=== PATIENT | male | born 1965 | race Caucasian/White ===

== ENCOUNTER 2024-02-13 05:10 | Inpatient (IN) | payer SELFPAY ==
[2024-02-13] VITALS (24 sets, daily range): BP systolic 103–161; BP diastolic 68–116; PULSE 72–133; RESP 12–41; TEMP 36.1–36.8; O2SAT 66–99; BMI 17.2; BMI 16.5
--- NOTE | 2024-02-13 05:26 | RAD_ITS ---
EXAM: XR CHEST, 1 VIEW CLINICAL INDICATION: sob TECHNIQUE: Frontal view of the chest. COMPARISON: No relevant prior studies available. FINDINGS: LUNGS AND PLEURAL SPACES: Emphysema. No pneumothorax. No effusion. HEART: Unremarkable. Cardiac silhouette not enlarged. MEDIASTINUM: Central airways and mediastinal contour are unremarkable. BONES/JOINTS: Unremarkable. No acute fracture. SOFT TISSUES: Unremarkable. RAD/Chest 1 View (Portable) IMPRESSION: Emphysema. No definite pneumonia. Electronically Signed: Colten Blackwood MD at 6:53 EDT ,
--- NOTE | 2024-02-13 05:27 | EKG12_ITS ---
Test Reason : SHORTNESS OF BREATH Blood Pressure : / mmHG Vent. Rate : 121 BPM Atrial Rate : 121 BPM P-R Int : 126 ms QRS Dur : 098 ms QT Int : 330 ms P-R-T Axes : 080 017 122 degrees QTc Int : 468 ms Sinus tachycardia with occasional Premature ventricular complexes Septal infarct , age undetermined T wave abnormality, consider lateral ischemia Abnormal ECG Confirmed by KARMA VICENTE, MUNA ([id number]), assistant editor LUIS LINK ([id number]) on 02/16/2024 11:13:44 AM Referred By: GERALD Confirmed By:MUNA PARADA MD
--- NOTE | 2024-02-13 05:28 | ED.VIS.DYS ---
HPI History of Present Illness Chief Complaint: Shortness of Breath Informant: patient and EMS Narrative Narrative: 58-year-old male presents via EMS in respiratory distress for dyspnea and diffuse chest heaviness that has been going on for over a month. He states for the most part it has been almost as bad as this but this is the worst it has been. He states he has avoided coming to the hospital because he does not have insurance. He does not see a doctor at all, and has not for a long time and lives alone. States he was a smoker for 40 years, states he may have COPD but has never been formally diagnosed with it. He was given a duo nebulizer treatment by EMS on the way here and he states it has maybe helped a little but he is diaphoretic and staff asked me to stop seeing another patient and to care for this 1 immediately. Denies orthopnea or leg edema. Denies fevers that he knows of. He has had a cough, not very productive. No hemoptysis. Bedbugs noted on patient upon arrival by staff. [facility] Medical History HTN (hypertension) Home Medications ?Medication ?Instructions ?Recorded ?Last Taken ?Type NK 02/13/24 Unknown History Allergy/AdvReac Type Severity Reaction Status Date / Time No Known Allergies Allergy Verified 02/13/24 05:12 Surgical History no surgical history Social History Smoking Status: Heavy Smoker (>10/day) ROS [facility] ED Constitutional Constitutional ED: Reports malaise and sweats; Denies chills or fever(s) Eyes Eyes: Denies change in vision or diplopia ENT ENT ED: Denies rhinorrhea or sore throat Cardiovascular Cardiovascular: Reports chest pain; Denies orthopnea or palpitations Respiratory/Chest Respiratory/Chest: Reports chest tightness, cough and dyspnea; Denies orthopnea Gastrointestinal Gastrointestinal: Denies abdominal pain, diarrhea, nausea or vomiting Genitourinary Genitourinary ED: Denies dysuria or hematuria Musculoskeletal Musculoskeletal: Denies back pain or neck pain Integumentary Denies abscess or rash Neurologic Neurologic: Denies headache(s), paresthesias or weakness Psychiatric Psychiatric: Reports anxiety; Denies suicidal thoughts EXAM Physical Exam Const Vital Signs: 02/13/24 05:11 02/13/24 05:19 02/13/24 05:21 Temperature 98.2 F 98.2 F Temperature Source Oral Oral Pulse Rate 131 H 132 H Respiratory Rate 41 H 26 H Respiratory Effort Labored Accessory Muscle Use Respiratory Pattern Tachypnea Blood Pressure 161/116 H 161/116 H Blood Pressure Mean 131 131 Pulse Ox 97 97 Oxygen Delivery Method Venturi Mask Venturi Mask Fraction of Inspired Oxygen (FIO2) 40 40 02/13/24 05:36 02/13/24 05:41 02/13/24 05:45 Temperature Temperature Source Pulse Rate 127 H 120 H 133 H Respiratory Rate 34 H 19 H 24 H Respiratory Effort Respiratory Pattern Irregular Blood Pressure 127/111 H Blood Pressure Mean 117 Pulse Ox 98 97 Oxygen Delivery Method Fraction of Inspired Oxygen (FIO2) 35 02/13/24 05:48 02/13/24 05:50 02/13/24 06:00 Temperature Temperature Source Pulse Rate 123 H 117 H Respiratory Rate 24 H 21 H Respiratory Effort Respiratory Pattern Tachypnea Blood Pressure 133/104 H Blood Pressure Mean 113 Pulse Ox 99 Oxygen Delivery Method Bi-pap Fraction of Inspired Oxygen (FIO2) 35 02/13/24 06:15 02/13/24 06:19 02/13/24 06:35 Temperature 97.8 F Temperature Source Temporal Pulse Rate 111 H 108 H 108 H Respiratory Rate 22 H 20 H 24 H Respiratory Effort Respiratory Pattern Tachypnea Blood Pressure 129/90 H 127/95 H Blood Pressure Mean 101 105 Pulse Ox 99 98 Oxygen Delivery Method Bi-pap Fraction of Inspired Oxygen (FIO2) 02/13/24 06:44 02/13/24 07:00 02/13/24 07:00 Temperature 97.9 F Temperature Source Temporal Pulse Rate 107 H 102 H Respiratory Rate 22 H 18 Respiratory Effort Respiratory Pattern Tachypnea Blood Pressure 115/93 H 115/93 H Blood Pressure Mean 100 100 Pulse Ox 98 Oxygen Delivery Method Bi-pap Fraction of Inspired Oxygen (FIO2) Positive well nourished, well developed and unkempt Constitutional Narrative: Diaphoretic, in mild respiratory distress, but keenly alert and able to converse in 3-5 word sentences General Appearance ED: unkempt and well developed HEENT Reports moist mucous membranes normocephalic and atraumatic Eyes PERRL and EOMs intact bilaterally Neck full ROM, supple and no JVD Resp Resp Narrative: Mild respiratory distress. Diminished lung sounds throughout but symmetrically. Trachea midline. Auscultation: wheezes expiratory wheezes and throughout Cardio regular rate, regular rhythm and no murmurs GI non-tender and non-distended Auscultation: normoactive bowel sounds Palpation: soft Back/Spine no CVA tenderness General Back: other FROM Extremity normal to inspection General Extremety ED: Negative for edema, pulses abnormal or tenderness General Extremity: Negative for edema or pulses abnormal Neuro oriented x3, CN's II-XII intact bilaterally and no sensory deficits noted Sensorium / Orientation: awake and alert Motor Exam: strength 5/5 throughout Psych mental status grossly normal Appearance: unkempt Skin no rashes or lesions noted and no wounds MDM MDM MDM Narrative Medical decision making narrative: Hypoxic for EMS in the 60s on room air. Prehospital EKG shows tachycardia, artifact, no acute injury pattern similar to our EKG here. He is 97% on a 40% Venturi mask. Still in mild respiratory distress so respiratory putting him on BiPAP while providing more albuterol treatments, he has a thick travis we will see if he tolerates it and/or it makes a seal and helps. pt was able to tolerate bipap, which in addition to breathing treatments, helped some. ABG shows hypercapnia w/ acidosis, indicating acute resp failure. 1-view portable CXR on my interpretation shows hyperexpansion and no acute pneumonia. EKG shows no acute injury pattern, his lactate is a little elevated, and he has a mild leukocytosis. RSV/covid/flu is negative. Giving him steroids given that he probably has COPD and discussing w/ hospitalist for admission; since improving, I think non-ICU is ok. Lab Data Attestation: I reviewed the patient's lab results. Labs: Laboratory Results - last 24 hr 02/13/24 02/13/24 02/13/24 05:27 05:55 06:20 WBC 12.2 H RBC 4.69 Hgb 16.1 Hct 49.6 MCV 105.8 H MCH 34.3 H MCHC 32.5 RDW Std Deviation 54.4 H RDW Coeff of Frantz 13.7 Plt Count 169 MPV 11.3 Neut % (Auto) Not Reportable Absolute Neuts (auto) 4.4 Absolute Lymphs (auto) 6.22 H Total Counted 100 Neutrophils % (Manual) 35 L Band Neutrophils % 1 Lymphocytes % (Manual) 51 H Monocytes % (Manual) 5 Eosinophils % (Manual) 7 H Basophils % (Manual) 1 Nucleated RBCs/100 WBC 2 Diff Path Review May foll Platelet Estimate ADEQUATE RBC Morphology NORM C+C Sodium Cancelled Cancelled 139 Potassium Cancelled Cancelled 4.7 Chloride Cancelled Cancelled 101 Carbon Dioxide Cancelled Cancelled 33.0 H Anion Gap Cancelled Cancelled 5 BUN Cancelled Cancelled 9 Creatinine Cancelled Cancelled 1.01 Estim Creat Clear Calc Cancelled Cancelled 61.98 Est GFR (MDRD) Af Amer Cancelled Cancelled 98 Est GFR (MDRD) Non-Af Cancelled Cancelled 81 BUN/Creatinine Ratio Cancelled Cancelled 8.9 L Glucose Cancelled Cancelled 207 H Lactic Acid 2.8 H* Calcium Cancelled Cancelled 8.6 Troponin I High Sens Cancelled Cancelled 44 ABG Data ABG results: ABG 02/13/24 06:20 Specimen Type ART Sample Site R Radial pH 7.26 L Bicarbonate Actual 33.2 H Total CO2 36 Base Excess 6 H O2 Saturation 98 O2 % 35.0 ABG pCO2 74.0 H* ABG pO2 123 H Pasquale Test Positive O2 Delivery Device BiPAP Vent Mode Not entered POC PEEP 8 Peak Inspir Pressure 14 Crit Call To/Read Back Yes Blood Gas Notified Whom bb Blood Gas Notified Time 06:22:09 Radiography Diagnostic Testing: Clinical Impression(s) from Imaging Studies Chest X-Ray 02/13/24 05:26 IMPRESSION: Emphysema. No definite pneumonia. Electronically Signed: Colten Blackwood MD at 6:53 EDT , Rhythm Strip Rhythm Strip: Sinus Tach Rate: 130 Ectopy: None EKG Initial EKG: Attestation: I personally reviewed and interpreted this EKG as follows: Interpretation: No Acute Injury Pattern and Sinus Tachycardia Management Discussion w/another healthcare provider: Hospitalist Discharge Plan Triage Chief Complaint: Shortness of Breath ED Provider: Chema Almanza Dx/Rx/DC Orders Clinical Impression: Acute respiratory failure with hypoxia and hypercapnia Prescriptions: No Action NK Primary Care Provider: Care Physician,No Primary Referrals: NOT,DEFINED [Non-Staff] - Print Language: [place]an Disposition Disposition: Acute Care Hospital [facility]
[2024-02-13 05:39] LABS: Hematocrit 49.6 % (40-54); Hemoglobin 16.1 g/dL (13.0-16.5); Mean Corp Hgb Conc 32.5 g/dL (32-36); Mean Corpuscular Hgb 34.3 pg (27.0-32.0); Mean Corpuscular Volume 105.8 fL (80-94); Mean Platelet Vol. 11.3 fl (6.2-12.0); POSITIVE DIFFERENTIAL YES; POSITIVE MORPHOLOGY YES; Platelet Count 169 K/mm3 (150-450); RBC Distribution Width CV 13.7 % (11.6-14.6); RBC Distribution Width SD 54.4 fl (35.1-43.9); Red Blood Count 4.69 M/mm3 (4.6-6.2); White Blood Count 12.2 K/mm3 (4.4-11.0)
[2024-02-13] MEDS: 0.9% Normal Saline (1000mL) 1,000 ML 150 ML IV (05:47)
[2024-02-13] MEDS: Albuterol 2.5 MG/3 ML VIAL.NEB. INHALATION ×3 (05:48→06:33)
[2024-02-13 06:06] LABS: Lactic Acid 2.8 mmol/L (0.4-1.9)
[2024-02-13 06:25] LABS: Allen Test Positive; Base Excess 6 mmol/L (-2 to +2); Bicarbonate 33.2 mmol/L (22-26); Blood Gas Specimen Type ART; Mode Not entered; O2 Delivery Device BiPAP; PEEP 8; PIP 14; PO2 123 mmHG (75-100); SITE R Radial; SO2 98 % (95-99); Total Carbon Dioxide 36 mmol/L; pH 7.26 (7.35-7.45)
--- NOTE | 2024-02-13 06:31 | ED.RN ---
EMS reported bed bugs in the home. Pt unable to tolerate decontamination room due to severe shortness of breath and need for bipap. RNs Nat and Regla performed bedside decontamination by washing with wipes and changing all linens. Nursing reported to this dietetic tech no bed bugs noted during care.
[2024-02-13 06:35] LABS: Differential Indicated MANUAL DIFF
[2024-02-13 06:41] LABS: Basophil 1 % (0-1); Eosinophil 7 % (0-5); Lymphocyte 51 % (19-41); Monocyte 5 % (0-10); Neutrophil-Band 1 % (0-5); Neutrophil-Segmented 35 % (47-70); Nucleated Red Bld Cells,Manual 2 % (0-5); Total Cells Counted 100 (MANUAL DIFF)
[2024-02-13 06:43] LABS: Anion Gap 5 (5-15); BUN 9 mg/dL (7-18); BUN/Creat Ratio 8.9 RATIO (10-20); Calcium,Total 8.6 mg/dL (8.5-10.1); Chloride 101 mmol/L (98-107); Creatinine, Serum 1.01 mg/dL (0.70-1.30); EST Glomerular Filtration Rate 81 mL/min (>60); Est Glom Filt Rate - Afr Amer 98 mL/min (>60); Estimated Creatinine Clearance 61.98 ml/min; Glucose 207 mg/dL (74-106); Potassium 4.7 mmol/L (3.5-5.1); Sodium Level 139 mmol/L (136-145); Troponin-I HS 44 pg/mL (3.0-78.0)
[2024-02-13 06:43] LABS: Platelet Estimate ADEQUATE (ADEQ); Red Cell Morphology NORM C+C NORMAL (NORM C&C)
[2024-02-13 06:44] LABS: Absolute Lymphocyte Count 6.22 X10^3/uL (0.83-4.51); Absolute Neutrophil Count 4.4 X10^3/uL (2.0-7.7)
--- NOTE | 2024-02-13 07:29 | NURSING ---
DR BARTLETT FOR DR DUARTE
[2024-02-13] MEDS: MethylPREDNISolone 125 MG/2 ML Vial IV (07:36)
--- NOTE | 2024-02-13 07:39 | NURSING ---
PCU D[facility]UV ACUTE RESP FAILURE
[2024-02-13 08:31] LABS: Hemoglobin A1c 5.3 % (3.8-5.6)
--- NOTE | 2024-02-13 09:27 | PCM.HP.STD ---
Documented by User: Zahira Gonzalez RN 02/13/24 11:33 HPI - General General Date of Admission: 02/13/24 Date of Service: 02/13/24 Chief Complaint: Shortness of breath HPI Narrative DEEPALI SUTHERLAND, is a 58 M who presented to the ER via EMS for shortness of breath. Pt seen at bedside in the ED, awake, alert, & cooperative. Pt reports intermittent exertional shortness of breath & prod cough w/white & clear sputum x 1 month. Sx worsened last evening & pt just became tired of it. He thinks he may have COPD, but has not been officially diagnosed. 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 Has not worked for past 3 days d/t not feeling well. Reports heat & humidity also worsen symptoms. Pt is a one ppd smoker x 40 yrs reporting he is trying to quit. Upon EMS arrival, sats in the 60s increasing to 97% on 40% venti-mask. Pt placed on Bipap in the ED. Tachycardic in the 130s upon arrival, decreasing to 98 in ED. ED workup revealed respiratory acidosis w/pH 7.26, CO2 74, & O2 123 on bipap. Pt also has slightly elevated WBC @ 12.2 w/no shift, elevated glucose @ 207, lactic acid. Troponin negative. COVID, Flu A/B, & RSV negative. CXR showed hyperinflation, no infiltrates noted. He received albuterol x 3, methylprednisolone 125 mg x 1, & NS @ 150 ml/hr w/improvement of sx. Denies dizziness, syncope, chest pain, N/V. Pt reports hx of HTN. No home medications. He is unable to recall last time he was seen by physician. [facility] Medical History (Updated 02/13/24 @ 11:07 by Zahira Gonzalez RN) Pneumothorax HTN (hypertension) Home Medications ?Medication ?Instructions ?Recorded ?Last Taken ?Type NK 02/13/24 Unknown History Allergy/AdvReac Type Severity Reaction Status Date / Time No Known Allergies Allergy Verified 02/13/24 05:12 Family History (Updated 02/13/24 @ 10:04 by Zahira Gonzalez RN) Mother Hypertension Father , Unknown Hx No problems noted. Brother , @ 67 yo from cirrhosis Diabetes Cirrhosis of liver Brother Myocardial infarction Brother No problems noted. Sister No problems noted. Surgical History (Updated 02/13/24 @ 10:07 by Zahira Gonzalez RN) S/P thoracostomy tube placement Surgical History no surgical history Social History (Updated 02/13/24 @ 10:09 by Zahira Gonzalez RN) financial difficulty paying for basics: somewhat hard current occupational status: employed current occupation: Works in kitchen at local restaurant history of recent travel: No current gender identity: male Smoking Status: Heavy Smoker (>10/day) Tobacco: How many years used: 40 quit status: considering quitting alcohol intake: current details: 2-6 beers 4 times/wk substance use type: marijuana and other details: Marijuana every 2 wks what type of physical activity do you participate in: none do you feel safe at home: Yes ROS Constitutional Constitutional: Reports fatigue; Denies anorexia, change in weight, chills, fever(s), malaise, night sweats or weakness Eyes Eyes: Denies blurry vision, change in vision, discharge from eye(s), double vision, erythema or eye pain ENT HEENT: Denies dysphagia, ear pain, epistaxis, headache(s), nasal congestion, nasal discharge or sore throat Cardiovascular Cardiovascular: Reports dyspnea on exertion; Denies chest pain, edema, lightheadedness, orthopnea, palpitations, rapid heart rate or syncope Respiratory/Chest Respiratory/Chest: Reports cough, dyspnea, productive cough, shortness of breath with exertion, wheezing and other Details: Intermittent prod cough w/white & clear sputum. Intermittent wheezing. ; Denies excessive phlegm production, hemoptysis or shortness of breath at rest Gastrointestinal Gastrointestinal: Denies abdominal pain, constipation, diarrhea, dyspepsia, hematemesis, melena, nausea or vomiting Genitourinary Genitourinary: Denies burning urination, difficulty urinating, dysuria, hematuria, nocturia or urinary frequency Musculoskeletal Musculoskeletal: Denies arthralgias, back pain, joint pain, myalgias or neck pain Neurologic Neurologic: Denies abnormal gait, abnormal speech, confusion, dizziness, headache(s) or numbness Psychiatric Psychiatric: Reports anxiety; Denies depression, homicidal ideation or suicidal ideation Endocrine Endocrinology: Denies change in body appearance, cold intolerance, polydipsia or polyuria Hematologic/Lymphatic Hematologic/Lymphatic: Denies easy bleeding or easy bruising Allergic/Immunologic Allergic/Immunologic: Denies rhinitis or eczemia Vital Signs Vital Signs Vital Signs: 02/13/24 05:11 02/13/24 05:19 02/13/24 05:21 Temperature 98.2 F 98.2 F Temperature Source Oral Oral Pulse Rate 131 H 132 H Respiratory Rate 41 H 26 H Respiratory Effort Labored Accessory Muscle Use Respiratory Pattern Tachypnea Blood Pressure 161/116 H 161/116 H Blood Pressure Mean 131 131 Pulse Ox 97 97 Oxygen Delivery Method Venturi Mask Venturi Mask Fraction of Inspired Oxygen (FIO2) 40 40 02/13/24 05:36 02/13/24 05:41 02/13/24 05:45 Temperature Temperature Source Pulse Rate 127 H 120 H 133 H Respiratory Rate 34 H 19 H 24 H Respiratory Effort Respiratory Pattern Irregular Blood Pressure 127/111 H Blood Pressure Mean 117 Pulse Ox 98 97 Oxygen Delivery Method Fraction of Inspired Oxygen (FIO2) 35 02/13/24 05:48 02/13/24 05:50 02/13/24 06:00 Temperature Temperature Source Pulse Rate 123 H 117 H Respiratory Rate 24 H 21 H Respiratory Effort Respiratory Pattern Tachypnea Blood Pressure 133/104 H Blood Pressure Mean 113 Pulse Ox 99 Oxygen Delivery Method Bi-pap Fraction of Inspired Oxygen (FIO2) 35 02/13/24 06:15 02/13/24 06:19 02/13/24 06:35 Temperature 97.8 F Temperature Source Temporal Pulse Rate 111 H 108 H 108 H Respiratory Rate 22 H 20 H 24 H Respiratory Effort Respiratory Pattern Tachypnea Blood Pressure 129/90 H 127/95 H Blood Pressure Mean 101 105 Pulse Ox 99 98 Oxygen Delivery Method Bi-pap Fraction of Inspired Oxygen (FIO2) 02/13/24 06:44 02/13/24 07:00 02/13/24 07:00 Temperature 97.9 F Temperature Source Temporal Pulse Rate 107 H 102 H Respiratory Rate 22 H 18 Respiratory Effort Respiratory Pattern Tachypnea Blood Pressure 115/93 H 115/93 H Blood Pressure Mean 100 100 Pulse Ox 98 Oxygen Delivery Method Bi-pap Fraction of Inspired Oxygen (FIO2) 02/13/24 08:01 Temperature 97 F L Temperature Source Pulse Rate 81 Respiratory Rate 21 H Respiratory Effort Respiratory Pattern Blood Pressure 118/81 H Blood Pressure Mean 93 Pulse Ox 99 Oxygen Delivery Method Fraction of Inspired Oxygen (FIO2) Weight Weight: 52.2 kg Body Mass Index (BMI) 16.5 Physical Exam Narrative Pt awake, alert, cooperative, good historian. Thin, frail, appearing older than stated age, unkept. Const alert, oriented x3 and no apparent distress General Appearance: cooperative HEENT normocephalic, hearing grossly normal bilaterally and moist oral mucous membranes HEENT Narrative: Tympanic membrane rivero & shiny. Nasal membranes & turbinates normal. Poor dentition. Eyes PERRL and EOMs intact bilaterally Eyes Narrative: Keyhole pupils tamanna. Pt reports since . Neck no lymphadenopathy, supple, no JVD and no carotid bruits Neck Narrative: Full ROM. Resp Resp Narrative: Mildly labored breathing. Tachypneic. Auscultation: wheezes expiratory wheezes (Faint expiratory wheezes throughout.) Cardio regular rate, regular rhythm, S1 normal heart sound, S2 normal heart sound, no murmurs, no rub, no gallops, no clicks and no JVD GI normal to inspection, nondistended, normoactive bowel sounds, soft to palpation, non-tender and non-distended Extremity normal to inspection, full ROM and no clubbing, cyanosis or edema Skin Skin Narrative: [place], warm, dry. No rashes or lesions noted. Neuro oriented x3, CN's II-XII intact bilaterally, moves all extremities and no focal motor deficits Sensorium / Orientation: awake, alert, oriented to person, oriented to place and oriented to time Speech: speech normal Motor Exam: strength 5/5 throughout Psych affect normal Mood & Affect: Negative for depressed or anxious Results Medical Records Data Attestation: I reviewed the patient's medical records Lab / Micro Data 02/13/24 05:27 02/13/24 06:20 Labs: Laboratory Results - last 24 hr 02/13/24 05:27: WBC 12.2 H, RBC 4.69, Hgb 16.1, Hct 49.6, MCV 105.8 H, MCH 34.3 H, MCHC 32.5, RDW Std Deviation 54.4 H, RDW Coeff of Frantz 13.7, Plt Count 169, MPV 11.3, Neut % (Auto) Not Reportable, Absolute Neuts (auto) 4.4, Absolute Lymphs (auto) 6.22 H, Total Counted 100, Neutrophils % (Manual) 35 L, Band Neutrophils % 1, Lymphocytes % (Manual) 51 H, Monocytes % (Manual) 5, Eosinophils % (Manual) 7 H, Basophils % (Manual) 1, Nucleated RBCs/100 WBC 2, Diff Path Review May foll, Platelet Estimate ADEQUATE, RBC Morphology NORM C+C, Sodium Cancelled, Potassium Cancelled, Chloride Cancelled, Carbon Dioxide Cancelled, Anion Gap Cancelled, BUN Cancelled, Creatinine Cancelled, Estim Creat Clear Calc Cancelled, Est GFR (MDRD) Af Amer Cancelled, Est GFR (MDRD) Non-Af Cancelled, BUN/Creatinine Ratio Cancelled, Glucose Cancelled, Lactic Acid 2.8 H*, Calcium Cancelled, Troponin I High Sens Cancelled, B-Natriuretic Peptide 259.0 H 02/13/24 05:55: Sodium Cancelled, Potassium Cancelled, Chloride Cancelled, Carbon Dioxide Cancelled, Anion Gap Cancelled, BUN Cancelled, Creatinine Cancelled, Estim Creat Clear Calc Cancelled, Est GFR (MDRD) Af Amer Cancelled, Est GFR (MDRD) Non-Af Cancelled, BUN/Creatinine Ratio Cancelled, Glucose Cancelled, Calcium Cancelled, Troponin I High Sens Cancelled 02/13/24 06:20: Sodium 139, Potassium 4.7, Chloride 101, Carbon Dioxide 33.0 H, Anion Gap 5, BUN 9, Creatinine 1.01, Estim Creat Clear Calc 61.98, Est GFR (MDRD) Af Amer 98, Est GFR (MDRD) Non-Af 81, BUN/Creatinine Ratio 8.9 L, Glucose 207 H, Calcium 8.6, Troponin I High Sens 44 02/13/24 07:47: Hemoglobin A1c 5.3 Micro: Microbiology 02/13/24 05:50 Mucosa - Nasopharyngeal SARS-CoV-2, Influenza & RSV (PCR) - Final ABG Data ABG results: ABG 02/13/24 06:20 Specimen Type ART Sample Site R Radial pH 7.26 L Bicarbonate Actual 33.2 H Total CO2 36 Base Excess 6 H O2 Saturation 98 O2 % 35.0 ABG pCO2 74.0 H* ABG pO2 123 H Pasquale Test Positive O2 Delivery Device BiPAP Vent Mode Not entered POC PEEP 8 Peak Inspir Pressure 14 Crit Call To/Read Back Yes Blood Gas Notified Whom bb Blood Gas Notified Time 06:22:09 Attestation: I personally reviewed and interpreted this ABG as follows: Interpretation: Respiratory acidosis. Rhythm Strip Rhythm Strip: Sinus Tach Rate: 130 Ectopy: None Imaging Radiology Impression Chest X-Ray 02/13/24 05:26 IMPRESSION: Emphysema. No definite pneumonia. Electronically Signed: Colten Blackwood MD at 6:53 EDT , Assessment & Plan Assessment/Plan (1) Acute respiratory failure with hypoxia and hypercapnia: PLAN: Plan 1. Acute respiratory failure w/hypoxia & hypercapnia 2. Leukocytosis 3. Lactic acidosis 4. Tachycardia 5. Hyperglycemia 1. Acute respiratory failure w/hypoxia & hypercapnia -Admit to PCU full admission. -Continue bipap, wean as tolerated. -Methylprednisolone 40 mg IV q8h. -Duoneb q4h while awake. -Albuterol 3 ml q2h prn wheezing. 2. Leukocytosis -Levaquin 750 mg IV daily. -Legionella antigen, urine. -Strep pneumoniae antigen, urine. Daily CBCD for monitoring of leukocytosis. 3. Lactic acidosis -Repeat lactic acid stat, if elevated will order IVF bolus. -Received NS @ 150 ml/hr in the ED. 4. Tachycardia -Suspect d/t respiratory distress. -Will continue to monitor. 5. Hyperglycemia -Hgb A1C, if elevated will monitor bedside glucose & order sliding scale insulin. 6. Hx of Hypertension -Monitor BP -Consider initiating lisinopril 5 mg PO daily 7. Tobacco Use -Encourage smoking cessation. -Declined nicotine patch. 8. Alcohol Abuse -CIWA q4h -Alcohol withdrawal per protocol. 9. DVT Prophylaxis -Lovenox 40 mg SC daily. 10. Lack of Insurance -Reports having Medicaid in the past & has since lapsed. -Consult social work for assistance in obtaining insurance. Documented by User: Dr. Michael Carbajal MD 02/13/24 13:22 HPI - General General Date of Admission: 02/13/24 [facility] Medical History (Updated 02/13/24 @ 11:07 by Zahira Gonzalez RN) Pneumothorax HTN (hypertension) Home Medications ?Medication ?Instructions ?Recorded ?Last Taken ?Type NK 02/13/24 Unknown History Allergy/AdvReac Type Severity Reaction Status Date / Time No Known Allergies Allergy Verified 02/13/24 05:12 Family History (Updated 02/13/24 @ 10:04 by Zahira Gonzalez, MILO) Mother Hypertension Father , Unknown Hx No problems noted. Brother , @ 67 yo from cirrhosis Diabetes Cirrhosis of liver Brother Myocardial infarction Brother No problems noted. Sister No problems noted. Surgical History (Updated 02/13/24 @ 10:07 by Zahira Gonzalez RN) S/P thoracostomy tube placement Surgical History no surgical history Social History (Updated 02/13/24 @ 10:09 by Zahira Gonzalez RN) financial difficulty paying for basics: somewhat hard current occupational status: employed current occupation: Works in kitchen at local restaurant history of recent travel: No current gender identity: male Smoking Status: Heavy Smoker (>10/day) Tobacco: How many years used: 40 quit status: considering quitting alcohol intake: current details: 2-6 beers 4 times/wk substance use type: marijuana and other details: Marijuana every 2 wks what type of physical activity do you participate in: none do you feel safe at home: Yes Results Lab / Micro Data 02/13/24 05:27 02/13/24 06:20 Assessment & Plan Assessment/Plan (1) Acute respiratory failure with hypoxia and hypercapnia:
[2024-02-13 09:36] LABS: Reflex Lactate? Y
--- NOTE | 2024-02-13 10:25 | PCM.HP.STD ---
HPI - General General Date of Admission: 02/13/24 Chief Complaint: Shortness of breath HPI Narrative DEEPALI SUTHERLAND, is a 58 M who presents to the hospital with SOB and dyspnea. He has been having symptoms for about a month and it got worse over the last several days. He does not see a doctor due to being without insurance. He takes no medications. He is a smoker and on EMS arrival was 66% on RA. CXR demonstrates a COPD pattern without obvious pneumonia but he has a leukocytosis to 12,000. ABG with a pH 7.26 and a pCO2 of 74. Troponin was normal and lactic acid was elevated to 2.8 from hypoxia. BNP is slightly elevated. [facility] Medical History (Updated 02/13/24 @ 11:07 by Zahira Gonzalez RN) Pneumothorax HTN (hypertension) Home Medications ?Medication ?Instructions ?Recorded ?Last Taken ?Type NK 02/13/24 Unknown History Allergy/AdvReac Type Severity Reaction Status Date / Time No Known Allergies Allergy Verified 02/13/24 05:12 Family History (Updated 02/13/24 @ 10:04 by Zahira Gonzalez RN) Mother Hypertension Father , Unknown Hx No problems noted. Brother , @ 67 yo from cirrhosis Diabetes Cirrhosis of liver Brother Myocardial infarction Brother No problems noted. Sister No problems noted. Surgical History (Updated 02/13/24 @ 10:07 by Zahira Gonzalez RN) S/P thoracostomy tube placement Surgical History no surgical history Social History (Updated 02/13/24 @ 10:09 by Zahira Gonzalez RN) financial difficulty paying for basics: somewhat hard current occupational status: employed current occupation: Works in kitchen at local [employer] history of recent travel: No current gender identity: male Smoking Status: Heavy Smoker (>10/day) Tobacco: How many years used: 40 quit status: considering quitting alcohol intake: current details: 2-6 beers 4 times/wk substance use type: marijuana and other details: Marijuana every 2 wks what type of physical activity do you participate in: none do you feel safe at home: Yes ROS Constitutional Constitutional: Denies chills, fatigue, fever(s) or malaise Eyes Eyes: Denies blurry vision ENT HEENT: Denies headache(s) or nasal discharge Cardiovascular Cardiovascular: Reports dyspnea on exertion; Denies chest pain or syncope Respiratory/Chest Respiratory/Chest: Reports shortness of breath at rest and shortness of breath with exertion; Denies cough Gastrointestinal Gastrointestinal: Denies constipation, diarrhea, nausea or vomiting Genitourinary Genitourinary: Denies dysuria Neurologic Neurologic: Denies focal weakness, numbness or tremor(s) Psychiatric Psychiatric: Denies anxiety or depression Vital Signs Vital Signs Vital Signs: 02/13/24 05:11 02/13/24 05:19 02/13/24 05:21 Temperature 98.2 F 98.2 F Temperature Source Oral Oral Pulse Rate 131 H 132 H Respiratory Rate 41 H 26 H Respiratory Effort Labored Accessory Muscle Use Respiratory Pattern Tachypnea Blood Pressure 161/116 H 161/116 H Blood Pressure Mean 131 131 Pulse Ox 97 97 Oxygen Delivery Method Venturi Mask Venturi Mask Fraction of Inspired Oxygen (FIO2) 40 40 02/13/24 05:36 02/13/24 05:41 02/13/24 05:45 Temperature Temperature Source Pulse Rate 127 H 120 H 133 H Respiratory Rate 34 H 19 H 24 H Respiratory Effort Respiratory Pattern Irregular Blood Pressure 127/111 H Blood Pressure Mean 117 Pulse Ox 98 97 Oxygen Delivery Method Fraction of Inspired Oxygen (FIO2) 35 02/13/24 05:48 02/13/24 05:50 02/13/24 06:00 Temperature Temperature Source Pulse Rate 123 H 117 H Respiratory Rate 24 H 21 H Respiratory Effort Respiratory Pattern Tachypnea Blood Pressure 133/104 H Blood Pressure Mean 113 Pulse Ox 99 Oxygen Delivery Method Bi-pap Fraction of Inspired Oxygen (FIO2) 35 02/13/24 06:15 02/13/24 06:19 02/13/24 06:35 Temperature 97.8 F Temperature Source Temporal Pulse Rate 111 H 108 H 108 H Respiratory Rate 22 H 20 H 24 H Respiratory Effort Respiratory Pattern Tachypnea Blood Pressure 129/90 H 127/95 H Blood Pressure Mean 101 105 Pulse Ox 99 98 Oxygen Delivery Method Bi-pap Fraction of Inspired Oxygen (FIO2) 02/13/24 06:44 02/13/24 07:00 02/13/24 07:00 Temperature 97.9 F Temperature Source Temporal Pulse Rate 107 H 102 H Respiratory Rate 22 H 18 Respiratory Effort Respiratory Pattern Tachypnea Blood Pressure 115/93 H 115/93 H Blood Pressure Mean 100 100 Pulse Ox 98 Oxygen Delivery Method Bi-pap Fraction of Inspired Oxygen (FIO2) 02/13/24 08:01 02/13/24 09:29 Temperature 97 F L Temperature Source Pulse Rate 81 Respiratory Rate 21 H Respiratory Effort Short of Breath Respiratory Pattern Blood Pressure 118/81 H Blood Pressure Mean 93 Pulse Ox 99 Oxygen Delivery Method Bi-pap Fraction of Inspired Oxygen (FIO2) Weight Weight: 115 lb 1.301 oz Body Mass Index (BMI) 16.5 Physical Exam Const alert and oriented x3 Constitutional Narrative: severe resp distress General Appearance: cooperative HEENT normocephalic Mouth: dry mucous membranes Eyes PERRL, EOMs intact bilaterally and conjunctivae normal Neck supple and no JVD Resp no use of accessory muscles Resp Narrative: diminished with tachypnea and cannot complete sentences with retractions. poor air movement Auscultation: wheezes scattered wheezes; Negative for crackles, rales or rhonchi Cardio regular rhythm, S1 normal heart sound, S2 normal heart sound and no murmurs Rate: tachycardic GI soft to palpation, non-tender and non-distended; Negative for hepatosplenomegaly Extremity no clubbing, cyanosis or edema Skin no rashes or lesions noted Neuro no focal motor deficits and no sensory deficits noted Psych affect normal Appearance: appropriate Results Lab / Micro Data 02/13/24 05:27 02/13/24 06:20 Labs: Laboratory Results - last 24 hr 02/13/24 05:27: WBC 12.2 H, RBC 4.69, Hgb 16.1, Hct 49.6, MCV 105.8 H, MCH 34.3 H, MCHC 32.5, RDW Std Deviation 54.4 H, RDW Coeff of Frantz 13.7, Plt Count 169, MPV 11.3, Neut % (Auto) Not Reportable, Absolute Neuts (auto) 4.4, Absolute Lymphs (auto) 6.22 H, Total Counted 100, Neutrophils % (Manual) 35 L, Band Neutrophils % 1, Lymphocytes % (Manual) 51 H, Monocytes % (Manual) 5, Eosinophils % (Manual) 7 H, Basophils % (Manual) 1, Nucleated RBCs/100 WBC 2, Diff Path Review May foll, Platelet Estimate ADEQUATE, RBC Morphology NORM C+C, Sodium Cancelled, Potassium Cancelled, Chloride Cancelled, Carbon Dioxide Cancelled, Anion Gap Cancelled, BUN Cancelled, Creatinine Cancelled, Estim Creat Clear Calc Cancelled, Est GFR (MDRD) Af Amer Cancelled, Est GFR (MDRD) Non-Af Cancelled, BUN/Creatinine Ratio Cancelled, Glucose Cancelled, Lactic Acid 2.8 H*, Calcium Cancelled, Troponin I High Sens Cancelled, B-Natriuretic Peptide 259.0 H 02/13/24 05:55: Sodium Cancelled, Potassium Cancelled, Chloride Cancelled, Carbon Dioxide Cancelled, Anion Gap Cancelled, BUN Cancelled, Creatinine Cancelled, Estim Creat Clear Calc Cancelled, Est GFR (MDRD) Af Amer Cancelled, Est GFR (MDRD) Non-Af Cancelled, BUN/Creatinine Ratio Cancelled, Glucose Cancelled, Calcium Cancelled, Troponin I High Sens Cancelled 02/13/24 06:20: Sodium 139, Potassium 4.7, Chloride 101, Carbon Dioxide 33.0 H, Anion Gap 5, BUN 9, Creatinine 1.01, Estim Creat Clear Calc 61.98, Est GFR (MDRD) Af Amer 98, Est GFR (MDRD) Non-Af 81, BUN/Creatinine Ratio 8.9 L, Glucose 207 H, Calcium 8.6, Troponin I High Sens 44 02/13/24 07:47: Hemoglobin A1c 5.3 Micro: Microbiology 02/13/24 05:50 Mucosa - Nasopharyngeal SARS-CoV-2, Influenza & RSV (PCR) - Final ABG Data ABG results: ABG 02/13/24 06:20 Specimen Type ART Sample Site R Radial pH 7.26 L Bicarbonate Actual 33.2 H Total CO2 36 Base Excess 6 H O2 Saturation 98 O2 % 35.0 ABG pCO2 74.0 H* ABG pO2 123 H Pasquale Test Positive O2 Delivery Device BiPAP Vent Mode Not entered POC PEEP 8 Peak Inspir Pressure 14 Crit Call To/Read Back Yes Blood Gas Notified Whom bb Blood Gas Notified Time 06:22:09 Rhythm Strip Rhythm Strip: Sinus Tach Rate: 130 Ectopy: None Imaging Radiology Impression Chest X-Ray 02/13/24 05:26 IMPRESSION: Emphysema. No definite pneumonia. Electronically Signed: Colten Blackwood MD at 6:53 EDT , Assessment & Plan Assessment/Plan (1) Acute respiratory failure with hypoxia and hypercapnia: PLAN: Plan 1. Acute hypoxic and hypercapnic resp failure secondary to COPD exacerbation - Lactic acid is elevated d/t hypoxia - given leukocytosis, will obtain sputum cultures as well as legionella and strep ag. Cover with levaquin - duonebs and steroids - c/w bipap, recheck abg in a few hours - discussed tobacco cessation, can cover with nicotine patch if necessary - A1c is pending given hyperglycemia and lack of outpatient monitoring DVT: Lovenox 75 minutes was spent in chart review, patient evaluation, documentation and collaboration with colleagues Charges/Coding Visit Charges Inpatient E&M: 93480 Init Hosp L3
[2024-02-13 10:26] LABS: Lactic Acid 0.9 mmol/L (0.4-1.9)
[2024-02-13] MEDS: Ipratropium/Albuterol Sulfate 3 ML AMPUL.NEB INHALATION ×3 (10:57→19:30)
--- NOTE | 2024-02-13 11:28 | CASEMGMT ---
MILO DIETRICH Assessment: Face to Face with pt for initial transition planning/care coordination assessment. MILO DIETRICH introduced self and role at [facility], pt voices understanding and consents to assessment. Pt is A&O x4 and answers all questions appropriately at this time. Pt sitting up in bed on bipap in no distress. Care providers, pharmacy, and demographics verified/updated. Admitting Dx: COPD exac PCP:None, PCP list provided. Pt denies need for assistance in setting up PCP as he states he wants to see if he qualifies for [facility]. Specialists:None Preferred Pharmacy:[facility] Retail Insurance: None, Mari from [facility] saw pt this morning. Prescription Benefit: no LNOK: Senthil Gutierrez, brother Living Arrangements: Pt lives alone in a 2nd story apt with approx 12 steps to enter with a rail. Pt reports he is I in ADL's and denies concerns at home. Pt works. Transportation: Pt does not drive, he uses a cab for transportation. DME:Denies HHC/SNF: Denies hx of Pt states no concerns with going home at time of dc. Provided pt with a verbal local in network list of DME companies should pt need oxygen, pt chose [employer]. Pt states no further concerns/needs. CM to follow. Advised pt to ask CM if any further question/concerns/needs arise, voices understanding. Pt Goal: Home Plan: Home, follow for oxygen Handoff provided to [employer] FINDERMILO Damon RN, CM
[2024-02-13] MEDS: levoFLOXacin 750 MG Tablet PO (12:35)
[2024-02-13] MEDS: Enoxaparin 40 MG/0.4 ML Syringe SC (12:35)
[2024-02-13 12:58] LABS: Pathologist Review Reviewed
[2024-02-13 13:16] LABS: Allen Test Positive; Base Excess 7 mmol/L (-2 to +2); Bicarbonate 32.1 mmol/L (22-26); Blood Gas Specimen Type ART; Mode Not entered; O2 Delivery Device Cannula; PO2 75 mmHG (75-100); SITE L Radial; SO2 94 % (95-99); Total Carbon Dioxide 34 mmol/L; pCO2 56.8 mmHg (35-45); pH 7.36 (7.35-7.45)
--- NOTE | 2024-02-13 15:09 | CASEMGMT ---
Social Work Mari from [facility] did see pt earlier today. SW met w/pt, provided resources as pt is self pay. SW gave pt information on [employer], [employer], [employer] financial assist, prescription assistance programs, and [employer]. Pt thanked LYNDA for the information. DHRUV Ulrich
[2024-02-13] MEDS: Magnesium Sulfate 1 GM in Dextrose 5%-Water (100mL Bag) 100 ML IV (21:36)
--- NOTE | 2024-02-13 22:33 | CPS ---
came to put pt on bipap-pt sleeping soundly with 97%sat in 2 l/m via nc-no resp distress noted at this time--did not wake pt up-nurse aware
[2024-02-14] VITALS (15 sets, daily range): BP systolic 98–122; BP diastolic 67–84; PULSE 64–96; RESP 12–20; TEMP 36.1–36.7; O2SAT 86–96
--- NOTE | 2024-02-14 05:01 | EKG12_ITS ---
Test Reason : QT Blood Pressure : / mmHG Vent. Rate : 063 BPM Atrial Rate : 000 BPM P-R Int : 000 ms QRS Dur : 094 ms QT Int : 616 ms P-R-T Axes : 000 025 234 degrees QTc Int : 630 ms Critical Test Result: Long QTc Junctional rhythm ST & Marked T wave abnormality, consider anterolateral ischemia Prolonged QT Abnormal ECG When compared with ECG of 13-FEB-2024 05:47, MANUAL COMPARISON REQUIRED, DATA IS UNCONFIRMED Confirmed by KARMA VICENTE, MUNA ([id number]), advertising editor YASMIN HENLEY ([id number]) on 02/16/2024 1:11:20 PM Referred By: Confirmed By:MUNA PARADA MD
--- NOTE | 2024-02-14 05:31 | PCM.HOSP.N ---
Hospitalist Note I was called by the RN and informed that this patient's QT-interval that was ~400 msec on admission emliio to > 600 msec with a gross pathological EKG change. His medications were reviewed and it was strongly suspected his QT-prolongation was from Levaquin so this agent was stopped in favor of IV Doxycycline. He was also treated with IV Magnesium Sulfate 1g. Finally, the RN was instructed to contact contact pharmacy for a further medication review to evaluate for other potential QT-prolonging agents to diminish risk of a more severe cardiac arrhythmia.
[2024-02-14] MEDS: Magnesium Sulfate 1 GM in Dextrose 5%-Water (100mL Bag) 100 ML IV (05:53)
[2024-02-14 06:33] LABS: Absolute Lymphocyte Count 1.44 X10^3/uL (0.83-4.51); Absolute Neutrophil Count 9.4 X10^3/uL (2.0-7.7); Basophil# 0.01 X10^3/uL; Basophil% 0.1 % (0-1); Hematocrit 42.5 % (40-54); Hemoglobin 14.6 g/dL (13.0-16.5); Lymphocyte # 1.44 X10^3/ul (0.83-4.51); Lymphocyte % 12.3 % (19-41); Mean Corp Hgb Conc 34.4 g/dL (32-36); Mean Corpuscular Hgb 34.7 pg (27.0-32.0); Mean Platelet Vol. 10.2 fl (6.2-12.0); Monocyte# 0.84 X10^3/uL; Monocyte% 7.2 % (0-10); NRBC Flagged by Analyzer 0 % (0-5); Neutrophil # 9.41 X10^3/uL (2.7-7.7); Neutrophil % 80.1 % (47-70); Platelet Count 187 K/mm3 (150-450); RBC Distribution Width CV 13.5 % (11.6-14.6); RBC Distribution Width SD 50.1 fl (35.1-43.9); Red Blood Count 4.21 M/mm3 (4.6-6.2); White Blood Count 11.7 K/mm3 (4.4-11.0)
[2024-02-14] MEDS: Ipratropium/Albuterol Sulfate 3 ML AMPUL.NEB INHALATION ×4 (06:54→19:43)
[2024-02-14 07:06] LABS: Anion Gap 4 (5-15); BUN 11 mg/dL (7-18); BUN/Creat Ratio 16.4 RATIO (10-20); Calcium,Total 8.5 mg/dL (8.5-10.1); Chloride 104 mmol/L (98-107); Creatinine, Serum 0.67 mg/dL (0.70-1.30); EST Glomerular Filtration Rate 129 mL/min (>60); Est Glom Filt Rate - Afr Amer 157 mL/min (>60); Estimated Creatinine Clearance 89.81 ml/min; Glucose 146 mg/dL (74-106); Magnesium 2.3 mg/dL (1.6-2.6); Potassium 4.2 mmol/L (3.5-5.1); Sodium Level 138 mmol/L (136-145)
[2024-02-14] MEDS: Doxycycline 100 MG in Dextrose 5%-Water (250mL Bag) 250 ML 250 MG IV ×2 (09:36→21:49)
[2024-02-14] MEDS: Enoxaparin 40 MG/0.4 ML Syringe SC (09:36)
--- NOTE | 2024-02-14 10:19 | CASEMGMT ---
Addendum entered by Jing Lyn 02/14/24 11:11: Social Work Pt has two prescriptions, cost is $55.79. SW inquired w/pt if he can afford this, he states will be difficult. SW explained can use hospital assist for medications but only once per year, so if we use the assist now he will not be able to use it again this year. Pt states understanding. SW completed the med assist form, spoke w/Annalisa in the pharmacy to let her know SW sending the form down for pt, and SW tubed the form. They will bring the medications to pt or give them to RN to lock up until pt is discharged tomorrow. SW updated RN as well. No further social service needs anticipated at this time. DHRUV Ulrich Original Note: Social Work As per RN, pt is concerned about finances should he need to be on O2 when he leaves here. SW did review Mari's note from [facility], she is applying for Medicaid for pt. SW spoke again w/pt in room. SW encouraged pt to follow up w/Mari when he leaves, to see if he will qualify for Medicaid. Pt is concerned if he is on O2, he will not be able to work. SW gave pt information on [employer], housing assist w/[employer] or [employer] if needed, and information on applying for social security if needed. Pt concerned about cost of O2 as well, SW explained if he qualifies for Medicaid would want to make sure he passes on his insurance information to the [employer]. Pt states understanding. He is hoping if he stays here one more day he will not need O2 and be able to return to work. Support offered to pt. DHRUV Ulrich
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
[2024-02-14] MEDS: LORazepam 2 MG/ML Syringe IV ×3 (11:16→22:10)
[2024-02-14] MEDS: 0.9% Saline Lock 10 ML Syringe IV ×4 (11:16→22:10)
[2024-02-15] VITALS (11 sets, daily range): BP systolic 105–129; BP diastolic 52–88; PULSE 74–101; RESP 16–18; TEMP 36.1–36.4; O2SAT 90–98
[2024-02-15] MEDS: LORazepam 2 MG/ML Syringe IV ×2 (02:17→09:38)
[2024-02-15] MEDS: 0.9% Saline Lock 10 ML Syringe IV ×2 (06:12→21:21)
[2024-02-15] MEDS: Ipratropium/Albuterol Sulfate 3 ML AMPUL.NEB INHALATION ×4 (06:52→19:33)
[2024-02-15] MEDS: Enoxaparin 40 MG/0.4 ML Syringe SC (09:13)
[2024-02-15] MEDS: Doxycycline 100 MG in Dextrose 5%-Water (250mL Bag) 250 ML 250 MG IV ×2 (09:14→21:20)
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
[2024-02-15] MEDS: Phenobarbital 32.4 MG Tablet 64.8 MG PO ×3 (10:42→21:20)
[2024-02-16] VITALS (12 sets, daily range): BP systolic 105–120; BP diastolic 70–87; PULSE 72–103; RESP 14–20; TEMP 35.9–36.9; O2SAT 88–96
[2024-02-16] MEDS: Phenobarbital 32.4 MG Tablet 64.8 MG PO ×6 (01:47→23:28)
[2024-02-16] MEDS: 0.9% Saline Lock 10 ML Syringe IV ×2 (05:12→13:59)
--- NOTE | 2024-02-16 05:27 | CPS ---
Offered bipap to pt. He expressed his lack of interest. RN notified.
[2024-02-16 05:53] LABS: Absolute Lymphocyte Count 1.48 X10^3/uL (0.83-4.51); Absolute Neutrophil Count 10.1 X10^3/uL (2.0-7.7); Basophil# 0.01 X10^3/uL; Basophil% 0.1 % (0-1); Hematocrit 42.8 % (40-54); Hemoglobin 14.5 g/dL (13.0-16.5); Lymphocyte # 1.48 X10^3/ul (0.83-4.51); Mean Corp Hgb Conc 33.9 g/dL (32-36); Mean Corpuscular Hgb 34.8 pg (27.0-32.0); Mean Corpuscular Volume 102.6 fL (80-94); Mean Platelet Vol. 10.1 fl (6.2-12.0); Monocyte# 0.75 X10^3/uL; Monocyte% 6.1 % (0-10); NRBC Flagged by Analyzer 0 % (0-5); Neutrophil # 10.06 X10^3/uL (2.7-7.7); Neutrophil % 81.3 % (47-70); Platelet Count 177 K/mm3 (150-450); RBC Distribution Width CV 13.9 % (11.6-14.6); Red Blood Count 4.17 M/mm3 (4.6-6.2); White Blood Count 12.4 K/mm3 (4.4-11.0)
[2024-02-16 06:29] LABS: Anion Gap 4 (5-15); BUN 14 mg/dL (7-18); Calcium,Total 8.8 mg/dL (8.5-10.1); Chloride 101 mmol/L (98-107); EST Glomerular Filtration Rate 182 mL/min (>60); Est Glom Filt Rate - Afr Amer 220 mL/min (>60); Estimated Creatinine Clearance 120.35 ml/min; Glucose 105 mg/dL (74-106); Potassium 4.2 mmol/L (3.5-5.1); Sodium Level 137 mmol/L (136-145)
[2024-02-16] MEDS: Thiamine Hydrochloride 100 MG Tablet PO (09:54)
[2024-02-16] MEDS: Enoxaparin 40 MG/0.4 ML Syringe SC (09:54)
[2024-02-16] MEDS: Doxycycline 100 MG in Dextrose 5%-Water (250mL Bag) 250 ML 250 MG IV ×2 (09:54→23:28)
[2024-02-16] MEDS: Folic Acid 1 MG Tablet PO (09:54)
--- NOTE | 2024-02-16 10:03 | PN.HOSP_ITS ---
Reason for Visit Reason for Visit: Diagnoses Acute respiratory failure with hypoxia (02/13/24) Acute respiratory failure with hypercapnia (02/13/24) Subjective Subjective Patient is a 58-year-old gentleman admitted with progressive shortness of breath diagnosed with acute hypoxic and hypercapnic respiratory failure secondary to COPD. He was also found to be in alcohol withdra Objective Data Objective Data Vital Signs: Vital Signs Temp Pulse Resp BP Pulse Ox O2 Del Method O2 Flow Rate 97.4 F L 103 H 18 120/87 H 90 Nasal Cannula 2 02/16/24 09:43 02/16/24 09:43 02/16/24 09:43 02/16/24 09:43 02/16/24 09:43 02/16/24 09:43 02/16/24 09:43 FiO2 84 02/15/24 09:18 Oxygen Flow Rate (L/min) [ 4 AMBULATING with Oxygen #3] Oxygen Flow Rate (L/min) [ 3 AMBULATING with Oxygen #2] Oxygen Flow Rate (L/min) [ 2 AMBULATING with Oxygen #1] Oxygen Flow Rate (L/min) [At 2 REST with Oxygen] Oxygen Flow Rate (L/min) 2 Oxygen Delivery Method Nasal Cannula Weight: 52.2 kg Body Mass Index (BMI) 16.5 Intake & Output: Intake and Output for Last 24 Hours 02/14/24 02/15/24 02/16/24 23:59 23:59 23:59 Intake Total 862 / 1112 1620 / 1870 500 / 500 Output Total 875 / 1225 901 / 1226 975 / 975 Balance -13 / -113 719 / 644 -475 / -475 Lab / Micro Data 02/16/24 05:38 02/16/24 05:38 Labs: Laboratory Results - last 24 hr 02/16/24 05:38: WBC 12.4 H, RBC 4.17 L, Hgb 14.5, Hct 42.8, MCV 102.6 H, MCH 34.8 H, MCHC 33.9, RDW Std Deviation 53.0 H, RDW Coeff of Frantz 13.9, Plt Count 177, MPV 10.1, Immature Gran % (Auto) 0.500, Neut % (Auto) 81.3 H, Lymph % (Auto) 12.0 L, Chase % (Auto) 6.1, Eos % (Auto) 0.0, Baso % (Auto) 0.1, Absolute Neuts (auto) 10.1 H, Absolute Lymphs (auto) 1.48, Nucleated RBC % 0, Sodium 137, Potassium 4.2, Chloride 101, Carbon Dioxide 32.0, Anion Gap 4 L, BUN 14, C reatinine 0.50 L, Estim Creat Clear Calc 120.35, Est GFR (MDRD) Af Amer 220, Est GFR (MDRD) Non-Af 182, BUN/Creatinine Ratio 28.0 H, Glucose 105, Calcium 8.8 Micro: Microbiology 02/13/24 17:50 Sputum, Expectorated/Coughed Gram Stain - Final 02/13/24 17:50 Sputum, Expectorated/Coughed Respiratory Culture - Final Mixed normal respiratory [place]. No Streptococcus pneumoniae, beta-hemolytic Streptococcus or Staphylococcus aureus isolated. 02/13/24 12:05 Urine, Clean Catch Streptococcus pneumoniae Antigen (M - Final 02/13/24 12:05 Urine, Clean Catch Legionella Antigen - Final 02/13/24 05:50 Mucosa - Nasopharyngeal SARS-CoV-2, Influenza & RSV (PCR) - Final Rhythm Strip Rhythm Strip: Sinus Tach Rate: 130 Ectopy: None Physical Exam Narrative GENERAL: cooperative HEENT: Atraumatic; normocephalic EYES; Anicteric, Normal Conjunctiva NECK; supple, normal thyroid, RESPIRATORY: Diminished to auscultation CARDIOVASCULAR: Regular S1 S2, GI: soft, normoactive bowel sounds, : No Renal angle tenderness; EXTREMITIES: No edema, no clubbing, MUSCULOSKELETAL: no muscle wasting NEURO: Awake; tremulous at rest SKIN: No Rash PSYCH; Flat affect Assessment & Plan Assessment/Plan (1) Acute respiratory failure with hypoxia and hypercapnia: PLAN: Plan Patient is a 58-year-old gentleman admitted with progressive shortness of breath diagnosed with acute hypoxic and hypercapnic respiratory failure secondary to COPD. He was also found to be in alcohol withdrawal 1. Acute hypoxic and hypercapnic resp failure secondary to COPD exacerbation - Patient started on bronchodilator treatment, systemic steroid as well as antibiotic therapy with doxycycline. Patient placed on oxygen titrated to keep saturation greater than 90. 2. Acute alcohol withdrawal - Patient has been admitted for treatment with phenobarb taper in addition to adjuvant medications including gabapentin, Bentyl, hydroxyzine and clonidine as needed for alcohol withdrawal symptoms. Patient was also placed on thiamine and folic acidConsultation placed to 180 counseling services 3. Tobacco dependence - Counseled on cessation, offered nicotine patch for tobacco cravings 4. Physical deconditioning - Requested for PT OT eval and business services specialist sales to assist with discharge planning 5. DVT prophylaxis - On enoxaparin Time spent in the patient's overall evaluation,decision-making process, review of diagnostic data, adjustment of management, discussion with other providers, nursing nursing and ancillary staff involved in patient's care documentation, 36 Minutes Charges/Coding Visit Charges Inpatient E&M: 44625 Subs Hosp L2
[2024-02-16] MEDS: Ipratropium/Albuterol Sulfate 3 ML AMPUL.NEB INHALATION ×2 (12:55→19:28)
--- NOTE | 2024-02-16 23:07 | CPS ---
Pt refused PAP at this time
[2024-02-17] VITALS (11 sets, daily range): BP systolic 111–130; BP diastolic 74–92; PULSE 62–85; RESP 12–18; TEMP 36.6–36.7; O2SAT 89–98
[2024-02-17] MEDS: Phenobarbital 32.4 MG Tablet 64.8 MG PO ×2 (02:58→06:31)
[2024-02-17] MEDS: 0.9% Saline Lock 10 ML Syringe IV (06:31)
[2024-02-17] MEDS: Ipratropium/Albuterol Sulfate 3 ML AMPUL.NEB INHALATION ×2 (06:48→10:14)
[2024-02-17] MEDS: Folic Acid 1 MG Tablet PO (07:37)
[2024-02-17] MEDS: Ensure Plus High Protein 120 ML LIQUID PO (07:37)
[2024-02-17] MEDS: Thiamine Hydrochloride 100 MG Tablet PO (07:37)
--- NOTE | 2024-02-17 09:07 | DS.PCM_ITS ---
Providers Date of Admission: 02/13/24 Date of Discharge: 02/17/24 Primary Care Physician: No Primary Care Phys Reason For Visit: COPD EXACERBATION Diagnosis Discharge Diagnosis (1) Acute respiratory failure with hypoxia and hypercapnia: Status: Acute Code(s): J96.01 - Acute respiratory failure with hypoxia; J96.02 - Acute respiratory failure with hypercapnia Plan Patient is a 58-year-old gentleman admitted with progressive shortness of breath diagnosed with acute hypoxic and hypercapnic respiratory failure secondary to COPD. He was also found to be in alcohol withdrawal 1. Acute hypoxic and hypercapnic resp failure secondary to COPD exacerbation - Patient started on bronchodilator treatment, systemic steroid as well as antibiotic therapy with doxycycline. Patient placed on oxygen titrated to keep saturation greater than 90. 2. Acute alcohol withdrawal - Patient has been admitted for treatment with phenobarb taper in addition to adjuvant medications including gabapentin, Bentyl, hydroxyzine and clonidine as needed for alcohol withdrawal symptoms. Patient was also placed on thiamine and folic acidConsultation placed to 180 counseling services 3. Tobacco dependence - Counseled on cessation, offered nicotine patch for tobacco cravings 4. Physical deconditioning - Requested for PT OT eval and social services analyst to assist with discharge planning 5. DVT prophylaxis - On enoxaparin Time spent in the patient's overall evaluation,decision-making process, review of diagnostic data, adjustment of management, discussion with other providers, nursing nursing and ancillary staff involved in patient's care documentation, 36 Minutes Medications at Discharge Home Medications albuterol sulfate 90 mcg/actuation aerosol inhaler 2 puff inhalation Q6H PRN shortness of breath or wheezing #8.5 grams 02/14/24 prednisone 20 mg tablet 40 mg (2 x 20 mg) PO DAILY #14 tabs 02/14/24 Physical Exam Narrative GENERAL: cooperative HEENT: Atraumatic; normocephalic EYES; Anicteric, Normal Conjunctiva NECK; supple, normal thyroid, RESPIRATORY: Diminished to auscultation CARDIOVASCULAR: Regular S1 S2, GI: soft, normoactive bowel sounds, : No Renal angle tenderness; EXTREMITIES: No edema, no clubbing, MUSCULOSKELETAL: no muscle wasting NEURO: Awake; tremulous at rest SKIN: No Rash PSYCH; Flat affect Medical Records Data Medical Nutrition Assessment Dietitian: Malnutrition Criteria Met Start: 02/16/24 10:09 Freq: Status: Active Protocol: Document 02/16/24 10:09 GIO (Rec: 02/16/24 10:09 SLA [id number]) Nutrition Malnutrition Evidence of Malnutrition Exists Yes Malnutrition (severe): Chronic Evidenced By Suboptimal Energy Intake ( Severe),Weight Loss (Severe), Physical Changes (Severe) Clinical Problem Chronic Disease or Condition Related Malnutrition Etiology related to chronic dz (COPD) and inadequate energy intake Signs/Symptoms as evidenced by unintended wt loss of 21.3% x ~ 1 year, po intake meeting <75% of estimated nutritional needs and fat loss/muscle wasting throughout body; BMI = 16.5 Status Active Problem Recommendation Dietitian Recommendations/Changes Will liberalize diet to Regular w/ fortified foods at meals as able d/t signs and symptoms of malnutrition Will order 4 oz chocolate ensure plus high protein 4x/ day w/ medpass for increased nutrition if consumed. Weight / BMI Weight Weight: 52.2 kg Body Mass Index (BMI) 16.5 ABG / Lab / Microbiology Data 02/16/24 05:38 02/16/24 05:38 Microbiology: Microbiology 02/13/24 17:50 Sputum, Expectorated/Coughed Gram Stain - Final 02/13/24 17:50 Sputum, Expectorated/Coughed Respiratory Culture - Final Mixed normal respiratory [place]. No Streptococcus pneumoniae, beta-hemolytic Streptococcus or Staphylococcus aureus isolated. 02/13/24 12:05 Urine, Clean Catch Streptococcus pneumoniae Antigen (M - Final 02/13/24 12:05 Urine, Clean Catch Legionella Antigen - Final 02/13/24 05:50 Mucosa - Nasopharyngeal SARS-CoV-2, Influenza & RSV (PCR) - Final D/C Instructions Discharge Diet: No restrictions Discharge Activity: Return to Normal Activity Call your doctor if you observe: Fever of 101 or Higher, Shortness of breath, Fainting spells and Chest pain Meaningful Use Info Meaningful Use Meaningful Use Diagnoses (Choose all that apply): None applicable Ischemic Stroke Statin Dosing Therapy Reference: STATIN DOSE THERAPY REFERENCE: * Patients > 75 years receive moderate or high dose statin therapy. * Patients 75 years or YOUNGER should receive HIGH intensity statin dose unless contraindicated. You will be required to document reason for non-treatment if statin daily dose does not meet guidelines. HIGH DOSE STATIN THERAPY DAILY Atorvastatin > than or = to 40 mg Rosuvastatin > than or = to 20 mg Amlodipine + Atorvastatin > than or = to 2.5/40 mg Ezetimibe + Simvastatin 10/80 mg Simvastatin 80mg Discharge Plan Admission Admit Date/Time: 02/13/24 07:32 Attending Provider: David Alvarez Primary Care Provider: Care Physician,No Primary Consulting Providers: Michael Carbajal Discharge Orders/Prescriptions Prescriptions: New prednisone 20 mg tablet 40 mg PO DAILY Qty: 14 0RF albuterol sulfate 90 mcg/actuation HFA aerosol inhaler 2 puff inhalation Q6H PRN (Reason: shortness of breath or wheezing) Qty: 8.5 1RF Referrals / Follow Up: Care Physician,No Primary [Primary Care Provider] - NOT,DEFINED [Non-Staff] - Disposition Disposition (needs filled in before D/C Order can be placed): Home, Self Care Charges/Coding Visit Charges Inpatient E&M: 15013 Disch Hosp >30min
--- NOTE | 2024-02-17 09:56 | CASEMGMT ---
Order for DC placed. Pt did not qualify for home oxygen. MILO CM to pt room at this time. Pt currently has all of his new Rx's at the bedside. Pt does not have a f/u appt scheduled as the pt does not have a PCP. This RN CM asked the pt is he has a preference from the list provided and the pt states that he plans to call and make an appt himself with the [facility]. Pt also reports that he does not have a ride home. The [employer]ite nozzle operator was able to set up transport through the hospital van at 1300. Pt RN notified and aware. At this time, the pt denies any further questions or concerns and is ready for DC home today.
--- NOTE | 2024-02-17 09:57 | PHA.DC_ITS ---
Pharmacy [facility] has performed discharge medication reconciliation and counseling for this patient. The patient's discharge medication list was reviewed for discrepancies and discrepancies were resolved. The patient was counseled on the following discharge medications and changes in medications for homegoing were reviewed. The Reason for Use, instructions for use, and potential side effects were reviewed for all new medications. The patient's questions regarding all of their medications were answered. 1. Albuterol inhaler 2 puffs Q6H PRN shortness of breath 2. Prednisone 40 mg PO daily The patient was able to verbally demonstrate an understanding of their discharge medications. The patient was counselled on new medications by registered pharmacy technician Andrew. Medications at Discharge Home Medications albuterol sulfate 90 mcg/actuation aerosol inhaler 2 puff inhalation Q6H PRN shortness of breath or wheezing #8.5 grams 02/14/24 prednisone 20 mg tablet 40 mg (2 x 20 mg) PO DAILY #14 tabs 02/14/24
[2024-02-17] MEDS: Doxycycline 100 MG in Dextrose 5%-Water (250mL Bag) 250 ML 250 MG IV (10:01)
--- NOTE | 2024-02-17 12:16 | NURSING ---
Patient meets all standards for discharging home. Awaiting ride from [facility] transport van. Van to pickup patient at 1300 to transport home. All papers and information reviewed.
--- NOTE | 2024-02-17 12:46 | NURSING ---
Patient leaving floor at 1246 accompanied by MGMT CONSULTANT to be discharged home. Leaving via [facility] transport van.
== END 2024-02-17 12:50 | disposition home or self-care (01) | DRG 189 ==
LOC: ED 07:39 → PCU 07:53
PROVIDERS: Admitting Provider Family Medicine; Emergency Provider Emergency Medicine; Visit Provider Internal Medicine
DX: J96.02 Acute respiratory failure with hypercapnia (principal); E43 Unspecified severe protein-calorie malnutrition; J44.1 Chronic obstructive pulmonary disease with (acute) exacerbation; F10.130 Alcohol abuse with withdrawal, uncomplicated; Z68.1 Body mass index [BMI] 19.9 or less, adult; J96.01 Acute respiratory failure with hypoxia; I10 Essential (primary) hypertension; R94.31 Abnormal electrocardiogram [ECG] [EKG]; T36.8X5A Adverse effect of other systemic antibiotics, initial encounter; R73.9 Hyperglycemia, unspecified; Z11.52 Encounter for screening for COVID-19; Z87.891 Personal history of nicotine dependence
CPT/HCPCS: 36415; 36600; 71045; 80048; 82803; 83036; 83605; 83735; 83880; 84484; 85025; 87070; 87205; 87449; 87631; 93005; 94002; 94003; 94640; 94668; 94762; 97802; 99284; 99406; J7030; A4216